=== PATIENT | male | born 1980 | race Caucasian/White ===

== ENCOUNTER 2017-08-28 17:38 | Emergency (ER) | payer OTHER ==
[~2017-08-28] VITALS: Ht 180.3 cm; Wt 122.5 kg
[~2017-08-28 17:38] MED LIST: BUSPIRONE HCL10 MG; KEFLEX500 MG PO; NORCO 5-325 TA1 EACH PO
[2017-08-28] MEDS ORDERED: CYCLOBENZAPRINE10 MG PO (18:02)
[2017-08-28] MEDS ORDERED: IBUPROFEN800 MG PO (18:03)
[2017-08-28] MEDS ORDERED: PERCOCET 5-3251 EACH PO (18:03)
[2017-08-28] MEDS ORDERED: OMEPRAZOLE20 MG PO (18:03)
[2017-08-28] MEDS ORDERED: NORCO 5-325 TA1 EACH PO (19:27)
== END 2017-08-28 20:05 | disposition home or self-care (01) ==
LOC: ED 17:38
DX: S86.111A Strain of other muscle(s) and tendon(s) of posterior muscle group at lower leg level, right leg, initial encounter (principal); X50.9XXA Other and unspecified overexertion or strenuous movements or postures, initial encounter; Z79.899 Other long term (current) drug therapy
CPT/HCPCS: 99283

== ENCOUNTER 2019-01-08 14:13 | Emergency (ER) | payer OTHER ==
[~2019-01-08] VITALS: Ht 180.3 cm; Wt 122.5 kg
[~2019-01-08 14:13] MED LIST changes: +CYCLOBENZAPRINE10 MG PO; +IBUPROFEN800 MG PO; +OMEPRAZOLE20 MG PO; +PERCOCET 5-3251 EACH PO
--- OUTSIDE RECORDS SUMMARY | 2019-01-08 14:16 | XMS ---
PreManage Notification: TRAMAINE DAVIS Security Morale Officer Events No recent Security Events currently on file CRITERIA MET - ESMEP CARE PROVIDERS Rubio Vergara Treatment Current MD PHONE: Unknown Clemente has no Care Guidelines for this patient. EKadi VISIT COUNT (12 MO.) 1 JULIA Govea TOTAL 1 NOTE: Visits indicate total known visits. ED/UCC VISIT TRACKING (12 MO.) 01/08/2019 14:14 [facility] [place] TYPE: Emergency COMPLAINT: - BACK PAIN/INJURY INPATIENT VISIT TRACKING (12 MO.) No inpatient visits to display in this time frame [id number]
[2019-01-08] MEDS ORDERED: NIACIN500 M1 PO (15:13)
[2019-01-08] MEDS ORDERED: PREDNISONE20 MG PO (17:23)
== END 2019-01-08 17:31 | disposition home or self-care (01) ==
LOC: ED 14:13
DX: M54.5 Low back pain (principal); G89.29 Other chronic pain; Z87.891 Personal history of nicotine dependence; Z79.899 Other long term (current) drug therapy; Z79.891 Long term (current) use of opiate analgesic
CPT/HCPCS: 72100; 99283-25; J7512

== ENCOUNTER 2019-03-08 18:42 | Emergency (ER) | payer OTHER ==
[~2019-03-08] VITALS: Ht 180.3 cm; Wt 124.5 kg
--- OUTSIDE RECORDS SUMMARY | ~2019-03-08 | XMS | Clinical Summary ---
Demographics + + + | Address | [address] | | | [place] [address] | + + + | Home Phone | | + + + | Preferred Language | Unknown | + + + | Marital Status | | + + + | Worship Affiliation | Unknown | + + + | Race | White | + + + | Ethnic Group | Not or | + + + Author + + + | Author | [facility] | + + + | Organization | [facility] | + + + | Address | Unknown | + + + | Phone | Unavailable | + + + Support + + + + + | Name | Relationship | Address | Phone | + + + + + | Daphnie Maciel | ECON | [address] | | | | | #[place] | | | | | [address] | | + + + + + Care Team Providers + +------+ + | Care Marketing Regional Consultant Name | Role | Phone | + +------+ + | Michael Hu MD | PP | | + +------+ + Source Comments ALY is fully live on both [facility] Ambulatory and [facility] InPatient.[facility] Allergies No Known Allergies Current Medications + + +-------+---------+------+------+-------+ | Prescription | Sig. | Disp. | Refills | Star | End | Statu | | | | | | t | Date | s | | | | | | Date | | | + + +-------+---------+------+------+-------+ | ACETAMINOPHEN | Take 500 mg by mouth | | | | | Activ | | (TYLENOL ORAL) | once daily. | | | | | e | + + +-------+---------+------+------+-------+ Active Problems + + + | Problem | Noted Date | + + + | Neck pain | 05/30/2012 | + + + Family History + + +------+ + | Medical History | Relation | Name | Comments | + + +------+ + | Arthritis | Mother | | | + + +------+ + + +------+--------+ + | Relation | Name | Status | Comments | + +------+--------+ + | Brother | | Alive | | + +------+--------+ + | Daughter | | Alive | | + +------+--------+ + | Daughter | | Alive | | + +------+--------+ + | Father | | Alive | | + +------+--------+ + | Mother | | Alive | | + +------+--------+ + | Son | | Alive | | + +------+--------+ + | Son | | Alive | | + +------+--------+ + Social History + + + +--------+ + | Tobacco Use | Types | Packs/Day | Years | Date | | | | | Used | | + + + +--------+ + | Former Smoker | Cigarettes | 1.5 | 22 | Quit: 01/11/2012 | + + + +--------+ + + + +---------+ + | Alcohol Use | Drinks/We | oz/Week | Comments | | | ek | | | + + +---------+ + | No | | | | + + +---------+ + + + + | Sex Assigned at | Date Recorded | | | | + + + | Not on file | | + + + Last Filed Vital Signs + + + + | Vital Sign | Reading | Time Taken | + + + + | Blood Pressure | 127/77 | 05/30/2012 11:31 AM PDT | + + + + | Pulse | 50 | 05/30/2012 11:31 AM PDT | + + + + | Temperature | 36.6 C (97.9 F) | 05/30/2012 11:31 AM PDT | + + + + | Respiratory Rate | - | - | + + + + | Oxygen Saturation | - | - | + + + + | Inhaled Oxygen | - | - | | Concentration | | | + + + + | Weight | 110.6 kg (243 lb | 05/30/2012 11:31 AM PDT | | | 12.8 oz) | | + + + + | Height | - | - | + + + + | Body Mass Index | - | - | + + + + Plan of Treatment + + + + + | Health Maintenance | Due Date | Last Done | Comments | + + + + + | Influenza (Flu) | | | | | vaccination (#1) | 8 | | | + + + + + Results Not on filefrom Last 3 Months Insurance + +--------+ +------+ + + | Payer | Benefi | Subscriber | Type | Phone | Address | | | t Plan | ID | | | | | | / | | | | | | | Group | | | | | + +--------+ +------+ + + | BLUE CROSS BLUE | BCBS | xxxxxxxxxxx | PPO | [phone] | [address] [address] [place] | | SHIELD | OUT OF | [phone] | | [phone] | [place], [place] | | | [place] | | | | [address] | + +--------+ +------+ + + + +--------+ +--------+ + + | Guarantor Name | Accoun | Relation to | Date | Phone | Billing Address | | | t Type | Patient | of | | | | | | | | | | + +--------+ +--------+ + + | TRAMAINE MACIEL | Person | Self [birth year] | Home: | [address] | | | al/Angel | | 1980 | [phone] | [id number] [place] | | | [place] | | | [phone] | [phone] | + +--------+ +--------+ + +"
--- OUTSIDE RECORDS SUMMARY | ~2019-03-08 | XMS | Clinical Summary ---
Demographics + + + | Address | [address] | | | [place] [address] | + + + | Home Phone | | + + + | Preferred Language | Unknown | + + + | Marital Status | | + + + | Hinduism Affiliation | Unknown | + + + [...] #[place] | | | | | [address] | | + + + + + Care Team Providers + +------+ + | Care Grocery Clerk Marking Name | Role | Phone | + +------+ + | Michael Hu MD | PP | | + +------+ + Source Comments ALY is fully live on both [facility] Ambulatory and [facility] InPatient.[facility] Allergies No Known Allergies Current Medications + [...] | PPO | [phone] | [address] [address] [place] | | SHIELD | OUT OF | x | | [phone] | [place], [place] | | | [place] | | | | [address] | + +--------+ +------+ + + + [...] | | al/Angel | | 1980 | [phone] | [address] [place] | | | [place] | | | [phone] | [phone] | + +--------+ +--------+ + +"
--- OUTSIDE RECORDS SUMMARY | ~2019-03-08 | XMS | Clinical Summary ---
Demographics + + + | Address | [address] | | | [place] [address] | + + + | Home Phone | | + + + | Preferred Language | Unknown | + + + | Marital Status | | + + + | Rastafari Affiliation | 1013 | + + + | Race | Unknown | + + + | Ethnic Group | Unknown | + + + Author + + + | Author | [facility] | | | and [place] | + + + | Organization | [facility] | | | [...] Team Providers + +------+ + | Care Clay Products Glazer Name | Role | Phone | + +------+ + | Katiana Hermosillo NP | PP | Unavailable | + +------+ + Allergies + + + + + + | Active Allergy | Reactions | Severity | Noted | Comments | | | | | Date | | + + + + + + | Citalopram | Nausea And Vomiting | | 12/21/19 | "Celexa" Light | | | | | 15 | headedness, sweats | + + + + + + Medications + + + +---------+------+------+-------+ | Medication | Sig | Dispensed | Refills | Star | End | Statu | | | | | | t | Date | s | | | | | | Date | | | + + + +---------+------+------+-------+ | NIACIN PO | Take 500 mg by mouth | | 0 | | | Activ | | | 2 times daily. | | | | | e | + + + +---------+------+------+-------+ | | Take 1 tablet by | | 0 | | | Activ | | HYDROcodone-acetamin | mouth every 8 hours | | | | | e | | ophen (NORCO) 10-325 | as needed for Pain. | | | | | | | mg per tablet | | | | | | | + + + +---------+------+------+-------+ | cyclobenzaprine | Take 10 mg by mouth | | 0 | | | Activ | | (FLEXERIL) 10 mg | 3 times daily as | | | | | e | | tablet | needed for Muscle | | | | | | | | spasms. | | | | | | + + + +---------+------+------+-------+ | ranitidine | Take 300 mg by mouth | | 0 | | | Activ | | (ZANTAC) 300 MG | nightly. | | | | | e | | tablet | | | | | | | + + + +---------+------+------+-------+ | Misc. Devices | 1 Units by Does not | 1 each | 0 | 02/1 | | Activ | | (CERVICAL TRACTION) | apply route Daily as | | | 0/20 | | e | | KIT | needed (Neck apin). 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 | + + + | Facet arthropathy, cervical | 12/22/2014 | + + + | Cervical scoliosis | 12/22/2014 | + + + | Neck pain on left side | 12/22/2014 | + + + Family History + + +------+ + | Medical History | Relation | Name | Comments | + + +------+ + | Alcohol abuse | Father | | | + + +------+ + | Arthritis | Father | | | + + +------+ + | Arthritis | Mother | | | + + +------+ + | Heart failure | Mother | | | + + +------+ + + +------+--------+ + | Relation | Name | Status | Comments | + +------+--------+ + | Father | | | | + +------+--------+ + | Mother | | | | + +------+--------+ + Social History + +-------+ +--------+ + [...] + + + | Blood Pressure | 112/78 | 12/22/2014 0844 PST | + + + + | Pulse | 70 | 12/22/2014843 PST | + + + + | Temperature | - | - | + + + + | Respiratory Rate | 18 | 12/22/2014843 PST | + + + + | Oxygen Saturation | - | - | + + + + | Inhaled Oxygen | - | - | | Concentration | | | + + + + | Weight | 125.6 kg (277 lb) | 12/22/2014843 PST | + + + + | Height | 180.3 cm (5' 11") | 12/22/2014843 PST | + + + + | Body Mass Index | 38.63 | 12/22/2014843 PST | + + + + Plan of Treatment + + + + + | Health Maintenance | Due Date | Last Done | Comments | + + + + + | Vaccine: | | | | | Dtap/Tdap/Td (1 - | 8 | | | | Tdap) | | | | + + + + + | Vaccine: Influenza | | | | | (Season Ended) | 9 | | | + + + + + Results Not on filefrom Last 3 Months Insurance + +--------+ +--------+ +---------+--------+ | Payer | Benefi | Subscriber | Effect | Phone | Address | Type | | | t Plan | ID | kiesha | | | | | | / | | Dates | | | | | | Group | | | | | | + +--------+ +--------+ +---------+--------+ | [employer] | MODA | [id number] | | [phone] | | Medica | | MEDICAID HMO | HEALTH | | [phone]-Pr | 1 | | id | | | MDCD | | esent | | | | | | [place] | | | | | | + +--------+ +--------+ +---------+--------+ + +--------+ +--------+ + + | Guarantor Name | Accoun | Relation to | Date | Phone | Billing Address | | | t Type | Patient | of | | | | | | | | | | + +--------+ +--------+ + + | Candelario Maciel | Person | Self [birth year] | [address] | | [place] | al/Fam | | 1980 | [phone] | [address] [place], | | | [place] | | | [address] (Home) | [place] [address] | + +--------+ +--------+ + + Advance Directives Patient has advance care planning documents on file. For more information, please contact:[facility] [place] [address]
--- OUTSIDE RECORDS SUMMARY | ~2019-03-08 | XMS | Clinical Summary ---
Demographics + + + | Address | [address] | | | [place] [address] | + + + | Home Phone | | + + + | Preferred Language | Unknown | + + + | Marital Status | Single | + + + | Restoration Affiliation | Unknown | + + + | Race | Unknown | + + + | Ethnic Group | Unknown | + + + Author + + + | Author | [facility] | + + + | Organization | [facility] | + + + | Address | Unknown | + + + | Phone | Unavailable | + + + Care Team Providers + +------+ + | Care Regional Operations Manager Name | Role | Phone | + +------+ + | Katiana Hermosillo | PP | Unavailable | + +------+ [...] +------+-------+ + | MEDICAID | [place] | [id number] | | | [address] | | | [place] | | | | [place] | | | [place] | | | | [phone] | | | [place] | | | | | + +--------+ +------+-------+ + + +--------+ +--------+ + + | Guarantor Name | Accoun | Relation to | Date | Phone | Billing Address | | | t Type | Patient | of | | | | | | | | | | + +--------+ +--------+ + + | TRAMAINE DAVIS | Person | Self | [birth year] | Home: | [address] | | | al/Fam | | 1979 | [phone] | [address] | | | [place] | | | [phone] | [place] [address] | + +--------+ +--------+ + +"
--- OUTSIDE RECORDS SUMMARY | ~2019-03-08 | XMS | Clinical Summary ---
Demographics + + + | Address | [address] | | | [place] [address] | + + + | Home Phone | | + + + | Preferred Language | Unknown | + + + | Marital Status | | + + + | Jehovah'S Witness Affiliation | 1013 | + + + | Race | Unknown | + + + | Ethnic Group | Unknown | + + + Author + + + | Author | [facility] | | | and [place] | + + + | Organization | [facility] | | | [...] Team Providers + +------+ + | Care Muck Farmer Name | Role | Phone | + [...] | [employer] | MODA | [id number] | | [phone] | | Medica | | MEDICAID HMO [...] [place] | al/Fam | | 1980 | [phone] | [address] [place], | | | [place] | | | [address] (Home) | [place] [address] | + +--------+ +--------+ + + Advance Directives Patient has advance care planning documents on file. For more information, please contact:[facility] [place] [address]
--- OUTSIDE RECORDS SUMMARY | ~2019-03-08 | XMS | Clinical Summary ---
Demographics + + + | Address | [address] | | | [place] [address] | + + + | Home Phone | | + + + | Preferred Language | Unknown | + + + | Marital Status | Single | + + + | Sikh Affiliation | Unknown | + + + | Race | Unknown | + + + | Ethnic Group | Unknown | + + + Author + + + | Author | [facility] | + + + | Organization | [facility] | + + + | Address | Unknown | + + + | Phone | Unavailable | + + + Care Team Providers + +------+ + | Care Lot Technician Name | Role | Phone | + [...] +------+-------+ + | MEDICAID | [place] | [id number] | | | [address] | | | [place] | | | | [place] | | | [place] | | | | [address] | | | FORESTRY FOREMAN | | | | | + +--------+ [...] | | | [phone] | [place] [address] | + +--------+ +--------+ + +"
[~2019-03-08 18:42] MED LIST changes: +NIACIN500 M1 PO; +PREDNISONE20 MG PO
--- OUTSIDE RECORDS SUMMARY | 2019-03-08 18:44 | XMS ---
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 Tanesha VISIT COUNT (12 MO.) Stone Govea TOTAL 2 NOTE: Visits indicate total known visits. ED/UCC VISIT TRACKING (12 MO.) 03/08/2019 18:42 [facility] [place] TYPE: Emergency COMPLAINT: - R HAND SWELLING 01/08/2019 14:14 [facility] [place] TYPE: Emergency COMPLAINT: - BACK PAIN/INJURY DIAGNOSES: - Other snf (current) drug therapy - Low back pain - penitentiary (current) use of opiate analgesic - Other chronic pain - Personal history of nicotine dependence INPATIENT VISIT TRACKING (12 MO.) No inpatient visits to display in this time frame [id number]
== END 2019-03-08 19:48 | disposition home or self-care (01) ==
LOC: ED 18:42
PROC: 2W3CX1Z Immobilization of Right Lower Arm using Splint (ICD-10-PCS; principal; 2019-03-08)
DX: S66.911A Strain of unspecified muscle, fascia and tendon at wrist and hand level, right hand, initial encounter (principal); Z87.891 Personal history of nicotine dependence; Z88.8 Allergy status to other drugs, medicaments and biological substances; Z79.899 Other long term (current) drug therapy; X58.XXXA Exposure to other specified factors, initial encounter
CPT/HCPCS: 29125; 99283-25

== ENCOUNTER 2019-09-29 16:18 | Emergency (ER) | payer OTHER ==
[~2019-09-29] VITALS: Ht 180.3 cm; Wt 115.7 kg
--- OUTSIDE RECORDS SUMMARY | ~2019-09-29 | XMS | Encounter Summary ---
Demographics + + + | Address | [address] | | | [place] [address] | + + + | Home Phone | | + + + | Preferred Language | Unknown | + + + | Marital Status | | + + + | Restorationist Affiliation | 1013 | + + + | Race | Unknown | + + + | Ethnic Group | Unknown | + + + Author + + + | Author | [facility] | | | and [place] | + + + | Organization | [facility] | | | and [place] | + + + | Address | Unknown | + + + | Phone | Unavailable | + + + Support + + +---------+ + | Name | Relationship | Address | Phone | + + +---------+ + | Elisabeth Janell | ECON | Unknown | | + + +---------+ + Care Team Providers + +------+ + | Care Rubber Printing Machine Operator Name | Role | Phone | + +------+ + | Katiana Hermosillo NP | PCP | | + +------+ + Encounter Details +--------+ + + + + | Date | Type | Department | Care Team | Description | +--------+ + + + + | 12/02/ | Orders Only | [facility] | Chase Melvin MD | Cervicalgia (Primary | | 2015 | | NEUROSURGERY [address] | [address] | Dx) | | | | [address] | [place] [address] | | | | | [place] | [phone] | | | | | [address] | | | | | | [phone] | | | +--------+ + + + + Social History + +-------+ +--------+------+ | Tobacco Use | Types | Packs/Day | Years | Date | | | | | Used | | + +-------+ +--------+------+ | Never Assessed | | | | | + +-------+ +--------+------+ + + + | Sex Assigned at | Date Recorded | | | | + + + | Not on file | | + + + + + + + | Job Start Date | Occupation | Industry | + + + + | Not on file | Not on file | Not on file | + + + + + + + + | Travel History | Travel Start | Travel End | + + + + + + | No recent travel history available. | + + documented as of this encounter Plan of Treatment Not on filedocumented as of this encounter Results XR Cervical Spine 4 or 5 Vws (12/22/2014 7:57 AM PST) + + | Specimen | + + | | + + + + + | Narrative | Performed At | + + + | XR CERVICAL SPINE 4 OR 5 VWS 12/22/2014 7:57 AM HISTORY: CERVICAL | [facility] | | [facility]. COMPARISON: None. FINDINGS: Visualized skull base | [facility] | | and facial structures demonstrate no acute findings. Prevertebral | [facility] | | soft tissues are normal. Mild anterolisthesis is visualized of C6 | - IMAGING | | over C7 that decreases during extension, consistent with mild | | | instability. Additional mild anterolisthesis is visualized of C5 over | | | C6 with no evidence for instability. Minimal anterolisthesis are | | | present of C2 over C3 and of C3 over C4 with no instability. There is | | | mild spondylosis of the cervical spine. Mild degenerative changes are | | | present of the anterior atlantoaxial joint. Bone mineralization is | | | normal. The dens is intact. Vertebral body heights are preserved with | | | no evidence for compression fractures. There is mild disc narrowing | | | at C4-5. Facet joints are intact. Visualized upper chest is | | | unremarkable. IMPRESSION - Multilevel degenerative changes | | | including some mild instability of C6 over C7. Dictated and Signed | | | by: Enio Love MD Electronically signed: 12/22/2014 8:59 AM | | + + + + + | Procedure Note | + + | Ephraim, Rad Results In - 12/22/2014 9:02 AM PST XR CERVICAL SPINE 4 OR 5 VWS 12/22/2014 | | 7:57 AMHISTORY: CERVICAL SPRAIN.COMPARISON: None.FINDINGS:Visualized skull base and | | facial structures demonstrate no acute findings.Prevertebral soft tissues are | | normal.Mild anterolisthesis is visualized of C6 over C7 that decreases duringextension, | | consistent with mild instability. Additional mild anterolisthesis isvisualized of C5 | | over C6 with no evidence for instability. Minimalanterolisthesis are present of C2 over | | C3 and of C3 over C4 with no instability.There is mild spondylosis of the cervical | | spine. Mild degenerative changes arepresent of the anterior atlantoaxial joint. Bone | | mineralization is normal. Thedens is intact. Vertebral body heights are preserved with | | no evidence forcompression fractures. There is mild disc narrowing at C4-5. Facet joints | | areintact. Visualized upper chest is unremarkable.IMPRESSION -Multilevel degenerative | | changes including some mild instability of C6 over C7.Dictated and Signed by: Enio | | MD Ivan Electronically signed: 12/22/2014 8:59 AM | |anterolisthesis are present of C2 over C3 and of C3 over C4 with no instability. | |There is mild spondylosis of the cervical spine. Mild degenerative changes are | |present of the anterior atlantoaxial joint. Bone mineralization is normal. The | |dens is intact. Vertebral body heights are preserved with no evidence for | |compression fractures. There is mild disc narrowing at C4-5. Facet joints are | |intact. Visualized upper chest is unremarkable. | | | |IMPRESSION - | |Multilevel degenerative changes including some mild instability of C6 over C7. | | | |Dictated and Signed by: Enio Love MD | | Electronically signed: 12/22/2014 8:59 AM | + + + + + + + | Performing | Address | City/State/Zipcode | Phone Number | | Organization | | | | + + + + + | [facility] | [address] | [place] | [phone] | | [facility] | | [address] | | | - IMAGING | | | | + + + + + documented in this encounter Visit Diagnoses + + | Diagnosis | + + | Cervicalgia - Primary | + + documented in this encounter"
--- OUTSIDE RECORDS SUMMARY | ~2019-09-29 | XMS | Encounter Summary ---
Demographics + + + | Address | [address] | | | [place] [address] | + + + | Home Phone | | + + + | Preferred Language | Unknown | + + + | Marital Status | | + + + | Catholic Affiliation | 1013 | + + + | Race | Unknown | + + + | Ethnic Group | Unknown | + + + Author + + + | Author | [facility] | | | and [place] | + + + | Organization | [facility] | | | and [place] | + + + | Address | Unknown | + + + | Phone | Unavailable | + + + Support + + +---------+ + | Name | Relationship | Address | Phone | + + +---------+ + | Elisabeth Maciel | ECON | Unknown | | + + +---------+ + Care Team Providers + +------+ + | Care Plate Printer Name | Role | Phone | + +------+ + | Katiana Hermosillo NP | PCP | | + +------+ + Reason for Visit + + + | Reason | Comments | + + + | Referral Consult | | + + + Encounter Details +--------+ + + + + | Date | Type | Department | Care Team | Description | +--------+ + + + + | 01/14/ | Telephone | [facility] | Chase Melvin MD | Referral Consult | | 2015 | | NEUROSURGERY [address] | | | | | [address] | [place] [address] | | | | | [place] | [phone] | | | | | [address] | | | | | | [phone] | | | +--------+ + + + + Social History + +-------+ +--------+ + | Tobacco Use | Types | Packs/Day | Years | Date | | | | | Used | | + +-------+ +--------+ + | Former Smoker | | 1.5 | 20 | Quit: 11/12/2011 | + +-------+ +--------+ + + +---+---+---+ | Smokeless Tobacco: | | | | | Never Used | | | | + +---+---+---+ + + +---------+ + | Alcohol Use | Drinks/Week | oz/Week | Comments | + + +---------+ + | No | | | Recovering alcoholic | + + +---------+ + + + [...] Not on filedocumented as of this encounter Visit Diagnoses Not on filedocumented in this encounter"
--- OUTSIDE RECORDS SUMMARY | ~2019-09-29 | XMS | Encounter Summary ---
Demographics + + + | Address | [address] | | | [place] [address] | + + + | Home Phone | | + + + | Preferred Language | Unknown | + + + | Marital Status | | + + + | Confucianist Affiliation | 1013 | + + + | Race | Unknown | + + + | Ethnic Group | Unknown | + + + Author + + + | Author | [facility] | | | and [place] | + + + | Organization | [facility] | | | [...] Team Providers + +------+ + | Care Almond Blancher Operator Name | Role | Phone | + +------+ + | Katiana Hermosillo NP | PCP | | + +------+ + Encounter Details +--------+ + + + + | Date | Type | Department | Care Team | Description | +--------+ + + + + | 12/21/ | Abstract | [facility] | Chase Melvin MD | | | 2015 | | NEUROSURGERY [address] | [address] | | | | | [address] | [place] [address] | | | | | DEE[place] Krueger | [phone] | | | | | [address] | | | | | | [phone] | | | +--------+ + + + + Social History + +-------+ +--------+ + | Tobacco Use | Types | Packs/Day | Years | Date | | | | | Used | | + +-------+ +--------+ + | Former Smoker | | 1.5 | 20 | Quit: 11/12/2011 | + +-------+ +--------+ + + + +---------+ + | [...]
--- OUTSIDE RECORDS SUMMARY | ~2019-09-29 | XMS | Clinical Summary ---
Demographics + + + | Address | [address] | | | [place] [address] | + + + | Home Phone | | + + + | Preferred Language | Unknown | + + + | Marital Status | | + + + | Mormon Affiliation | Unknown | + + + [...] [address] | | | | | [id number] | | | | | [address] | | + + + + + Care Team Providers + +------+ + | Care Dairy Processing Equipment Operator Name | Role | Phone | + +------+ + | Michael Hu MD | PCP | | + +------+ + Source Comments ALY is fully live on both [facility] Ambulatory and [facility] InPatient.[facility] Allergies No Known Allergies Medications + + + +---------+------+------+-------+ | Medication | Sig | Dispensed | Refills | Star | End | Statu | | | | | | t | Date | s | | | | | | Date | | | + + + +---------+------+------+-------+ | ACETAMINOPHEN | Take 500 mg by mouth | | 0 | | | Activ | | (TYLENOL ORAL) | once daily. | | | | | e | + + + +---------+------+------+-------+ Active Problems + + + | Problem [...] recent travel history available. | + + Last Filed Vital Signs + + + + + | Vital Sign | Reading | Time Taken | Comments | + + + + + | Blood Pressure | 127/77 | 05/30/2012 11:31 AM | | | | | PDT | | + + + + + | Pulse | 50 | 05/30/2012 11:31 AM | | | | | PDT | | + + + + + | Temperature | 36.6 C (97.9 F) | 05/30/2012 11:31 AM | | | | | PDT | | + + + + + | Respiratory Rate | - | - | | + + + + + | Oxygen Saturation | - | - | | + + + + + | Inhaled Oxygen | - | - | | | Concentration | | | | + + + + + | Weight | 110.6 kg (243 lb | 05/30/2012 11:31 AM | | | | 12.8 oz) | PDT | | + + + + + | Height | - | - | | + + + + + | Body Mass Index | - | - | | + + + + + Plan of Treatment + + + + + | Health Maintenance | Due Date | Last Done | Comments | + + + + + | Influenza (Flu) | | | | | vaccination (#1) | 9 | | | + + + + + | Pneumococcal | Aged Out | | No longer eligible | | vaccination | | | based on patient's | | | | | age to complete this | | | | | topic | + + + + + Results Not on filefrom Last 3 Months Insurance + +--------+ +--------+ + +------+ | Payer | Benefi | Subscriber | Effect | Phone | Address | Type | | | t Plan | ID | kiesha | | | | | | / | | Dates | | | | | | Group | | | | | | + +--------+ +--------+ + +------+ | BLUE CROSS BLUE | BCBS | [phone] | 11/12/19 | [phone] | [address] | PPO | | SHIELD | OUT OF | x | 11-Pre | 8 | [address] | | | | STATE | | sent | | [place], | | | | | | | | [place] | | | | | | | | [address] | | + +--------+ +--------+ + +------+ + +--------+ +--------+ + + | Guarantor Name | Accoun | Relation to | Date | Phone | Billing Address | | | t Type | Patient | of | | | | | | | | | | + +--------+ +--------+ + + | Candelario Maciel | Person | Self | [birth year] | [address] | | | al/Fam | | 1980 | [phone] | [address] [place] | | | [place] | | | 0 (Home) | [address] | + +--------+ +--------+ + +"
--- OUTSIDE RECORDS SUMMARY | ~2019-09-29 | XMS | Clinical Summary ---
Demographics + + + | Address | [address] | | | [place] [address] | + + + | Home Phone | | + + + | Preferred Language | Unknown | + + + | Marital Status | Single | + + + | Anabaptist Affiliation | Unknown | + + + | Race | Unknown | + + + | Ethnic Group | Unknown | + + + Author + + + | Author | [facility] (Historical as of | | | 06-28-19) | + + + | Organization | [facility] (Historical as of | | | 06-28-19) | + + + | Address | Unknown | + + + | Phone | Unavailable | + + + Care Team Providers + +------+ + | Care Information Consultant Name | Role | Phone | + +------+ + | Pia Hermosillos Ananthmerari COMMERCIAL PAINTER | PP | Unavailable | + +------+ + Allergies Not on File Current Medications Not on file Active Problems Not on file Social History + +-------+ +--------+------+ | Tobacco [...] on file | | + + + Plan of Treatment Not on file Results Not on filefrom Last 3 Months Insurance + +--------+ +------+-------+ + | Payer | Benefi | Subscriber | Type | Phone | Address | | | t Plan | ID | | | | | | / | | | | | | | Group | | | | | + +--------+ +------+-------+ + | MEDICAID | [place] | [id number] | | | [address] | | | N | | | | [place] | | | [place] | | | | [address] | | | DIRECTOR OF INTELLIGENCE | | | | | + +--------+ +------+-------+ + + +--------+ +--------+ + + | Guarantor Name | Accoun | Relation to | Date | Phone | Billing Address | | | t Type | Patient | of | | | | | | | | | | + +--------+ +--------+ + + | CANDELARIO DAVIS | Person | Self [birth year] | Home: | [address] | | | al/Fam | | 1980 | [phone] | [address] | | | jer[place] | | | [phone] | [place] [address] | + +--------+ +--------+ + +"
--- OUTSIDE RECORDS SUMMARY | ~2019-09-29 | XMS | Encounter Summary ---
Demographics + + + | Address | [address] | | | [place] [address] | + + + | Home Phone | | + + + | Preferred Language | Unknown | + + + | Marital Status | | + + + | Confucianism Affiliation | Unknown | + + + | Race | White | + + + | Ethnic Group | Not or | + + + Author + + + | Author | [facility] | + + + | Organization | [facility] | + + + | Address | Unknown | + + + | Phone | Unavailable | + + + Support + + + + + | Name | Relationship | Address | Phone | + + + + + | Daphnie Maciel | ECON | [address] | | | | | #[id number] | | | | | [address] | | + + + + + Care Team Providers + +------+ + | Care Cardiac Surgeon Name | Role | Phone | + +------+ + | Michael Sykes MD | PCP | | + +------+ + Reason for Visit + + + | Reason | Comments | + + + | Consultation | | + + + Consultation (Routine) +--------+ + + + + + | Status | Reason | Specialty | Diagnoses / | Referred By | Referred To | | | | | Procedures | Contact | Contact | +--------+ + + + + + | Closed | Specialty | Neurological | Diagnoses | Fritz, | Keri, | | | Services | Surgery | Cervical | Michael Valentin, | MD [address] | | | Required | | radiculopath | MD SYKES | [address] | | | | | y at [address] | FAMILY | [place], [place] | | | | | INS: BCBS | MEDICINE | [address] | | | | | | [address] | Phone: | | | | | | [address] | [phone] | | | | | | [place], | Fax: | | | | | | [place] [address] | [phone] | | | | | | Phone: | | | | | | | [phone] | | | | | | | Fax: | | | | | | | [phone] | | +--------+ + + + + + Encounter Details +--------+---------+ + + + | Date | Type | Department | Care Team | Description | +--------+---------+ + + + | 07/19/ | Office | Neurosurgery at | Arabella Saavedra MD | Neck pain (Primary | | 2011 | Visit | [facility] [address] | [address] | Dx) | | | | Ave Mailcode: CH8N | [place], [place] | | | | | [facility] | [address] | | | | | and Healing, | [phone] | | | | | [facility] | | | | | | Floor [place], [place] | | | | | | [address] | | | | | | [phone] | | | +--------+---------+ + + + Social History + + + +--------+ [...] + + documented as of this encounter Last Filed Vital Signs + + + [...] + + + documented in this encounter Progress Notes Arabella Saavedra MD - 05/30/2012 1:54 PM PDT History: Candelario Maciel is a 31 year old man presenting in clinic with a complaint of neck pain. Patient reports an injury due to hyperflexion of his neck in a trampoline accident 15-16 yea rs ago, but only started feeling pain in the last year, starting in September 2011. Patient also has a new daughter, born in November 2011, and he reports carrying her will also cause n kevin pain. There is a constant background pain which the patient rates at a 2, with breakthro ugh pain rated at an 8-9. The pain starts on the left side of his neck and radiates down to his trapezius muscle. Patient also reports a feeling of cold and numbness in the anterior almonte rface of his left arm and palmar surface of his left hand during these episodes. Patient rep orts episodes can be triggered by turning his head too far to the left, but that episodes al so occur sporadically without noticeable trigger. He has tried managing the pain with NSAIDs and Tylenol with codeine. Patient has been referred to physical therapy but states he is to o busy to go, and is here for a second opinion on cortisone injections as he is concerned ab out the cost. No past medical history on file. Current outpatient prescriptions:ACETAMINOPHEN (TYLENOL ORAL), Take 500 mg by mouth once nam jean-baptiste. , Disp: , Rfl: No Known Allergies No past surgical history on file. History Social History Marital Status: Spouse Name: N/A Number of Children: N/A Years of Education: N/A Occupational History Not on file. Social History Main Topics Smoking status: Former Smoker -- 1.5 packs/day for 20 years Types: Cigarettes Quit date: 01/11/2012 Smokeless tobacco: Not on file Alcohol Use: No Drug Use: 5 per week Special: Smoke Sexually Active: Not on file Other Topics Concern Not on file Social History Narrative No narrative on file Exam: Neurological Examination: Mental status: Normal consciousness, orientation, affect and fluency, Cranial nerves: II-XII intact on detailed examination. Motor: Normal strength, muscle bulk, and tone. Sensory: No loss of sensation to pinprick and light touch. Cerebellar: Normal Ramona and fine coordinated movements. Gait: Normal gait and stride length. Romberg negative. Deep tendon reflexes: Present and normoactive. Pathologic reflexes: Absent. Imaging: Probable C3 > C4 compression fractures from old trauma. Otherwise no instability or deform ity. Assessment: At this point there is no clear indication for surgery. I suspect his problems with neck p ain do stem from his hyperflexion injury years ago. I have recommended that he continue PT, and consider other treatments, such as cervical halter traction. Plan: 1. Continue conservative treatment. 2. Consider cervical halter traction. documented in this enco unter Plan of Treatment Not on filedocumented as of this encounter Procedures + +--------+ + + + | Procedure Name | Priori | Date/Time | Associated Diagnosis | Comments | | | ty | | | | + +--------+ + + + | RADIOLOGY | | 05/30/2012 | | Results for this | | | | 12:00 AM | | procedure are in the | | | | PDT | | results section. | + +--------+ + + + documented in this encounter Results RADIOLOGY (05/30/2012 12:00 AM PDT) + + + | Narrative | Performed At | + + + | | | + + + + + | Transcriptions | + + | Joesph Lucas - 05/30/2012 5:25 PM PDT | + + documented in this encounter Visit Diagnoses + + | Diagnosis | + + | Neck pain - Primary Cervicalgia | + + documented in this encounter"
--- OUTSIDE RECORDS SUMMARY | ~2019-09-29 | XMS | Encounter Summary ---
Demographics + + + | Address | [address] | | | [place] [address] | + + + | Home Phone | | + + + | Preferred Language | Unknown | + + + | Marital Status | | + + + | Christianity Affiliation | 1013 | + + + | Race | Unknown | + + + | Ethnic Group | Unknown | + + + Author + + + | Author | [facility] | | | and [place] | + + + | Organization | [facility] | | | and [...] Team Providers + +------+ + | Care Community Case Manager Name | Role | Phone | + +------+ + | Katiana Hermosillo NP | PCP | | + +------+ + Encounter Details +--------+ + + + + | Date | Type | Department | Care Team | Description | +--------+ + + + + | 12/22/ | Hospital | [facility] | Chase Melvin MD | Cervicalgia | | 2015 | Encounter | MED CTR XRAY [address] | [address] | | | | | [address] | [place] [address] | | | | | [place] [address] | [phone] | | | | | [phone] | | | +--------+ + + + [...] + + documented as of this encounter Medications at Time of Discharge + + + +---------+ + + | Medication | Sig | Dispensed | Refills | Start | End Date | | | | | | Date | | + + + +---------+ + + | cyclobenzaprine | Take 10 mg by mouth | | 0 | | | | (FLEXERIL) 10 mg | 3 times daily as | | | | | | tablet | needed for Muscle | | | | | | | spasms. | | | | | + + + +---------+ + + | | Take 1 tablet by | | 0 | | | | HYDROcodone-acetamin | mouth every 8 hours | | | | | | ophen (NORCO) 10-325 | as needed for Pain. | | | | | | mg per tablet | | | | | | + + + +---------+ + + | Misc. Devices | 1 Units by Does not | 1 each | 0 | /08/31 | | | (CERVICAL TRACTION) | apply route Daily as | | | 15 | | | KIT | needed (Neck apin). | | | | | + + + +---------+ + + | NIACIN PO | Take 500 mg by mouth | | 0 | | | | | 2 times daily. | | | | | + + + +---------+ + + | ranitidine | Take 300 mg by mouth | | 0 | | | | (ZANTAC) 300 MG | nightly. | | | | | | tablet | | | | | | + + + +---------+ + + documented as of this encounter Plan of Treatment Not on filedocumented as of this encounter Procedures + +--------+ + + + | Procedure Name | Priori | Date/Time | Associated Diagnosis | Comments | | | ty | | | | + +--------+ + + + | XR CERVICAL SPINE 4 | Routin | 12/22/2014 | Cervicalgia | Results for this | | [place] 5 VWS | e | 7:57 AM | | procedure are in the | | | | PST | | results section. | + +--------+ + + + documented in this encounter Results XR Cervical Spine 4 [...] | + + + + + | [facility] | [address] | [place], [place] | [phone] | | [facility] | | [address] | | | - IMAGING | | | | + + + + + documented in this encounter Visit Diagnoses + + | Diagnosis | + + | Cervicalgia | + + documented in this encounter"
--- OUTSIDE RECORDS SUMMARY | ~2019-09-29 | XMS | Encounter Summary ---
Demographics + + + | Address | [address] | | | [place] [address] | + + + | Home Phone | | + + + | Preferred Language | Unknown | + + + | Marital Status | | + + + | Orthodoxy Affiliation | 1013 | + + + | Race | Unknown | + + + | Ethnic Group | Unknown | + + + Author + + + | Author | [facility] | | | and [place] | + + + | Organization | [facility] | | | and [...] Team Providers + +------+ + | Care Head Of Precision Targeting Name | Role | Phone | + +------+ + | Katiana Hermosillo NP | PCP | | + +------+ + Encounter Details +--------+ + + + + | Date | Type | Department | Care Team | Description | +--------+ + + + + | 12/22/ | Hospital | [facility] | Chase Melvin MD | Cervicalgia | | 2015 | Encounter | MED CTR XRAY [address] | [address] | | | | | [place] | [place] [address] | | | | | [place] [address] | [phone] | | | | | [phone] | | | +--------+ + + + [...] + | [facility] | [address] | [place], [place] | [phone] | | [facility] | | [address] | | | - IMAGING | | | | + + + + + documented in this encounter Visit Diagnoses + + | Diagnosis | + + | Cervicalgia | + + documented in this encounter"
--- OUTSIDE RECORDS SUMMARY | ~2019-09-29 | XMS | Encounter Summary ---
Demographics + + + | Address | [address] | | | [place] [address] | + + + | Home Phone | | + + + | Preferred Language | Unknown | + + + | Marital Status | | + + + | Moravian Affiliation | 1013 | + + + | Race | Unknown | + + + | Ethnic Group | Unknown | + + + Author + + + | Author | [facility] | | | and [place] | + + + | Organization | [facility] | | | [...] Team Providers + +------+ + | Care Direct Sales Representative Name | Role | Phone | + [...] | | [address] | [place] [address] | | | | | [place] | [phone] | | | | | [address] | | | | | | [phone] | | | +--------+ + + + [...] | + + + + + | [facility] | [address] | [place] | [phone] | | [facility] | | [address] | | | - IMAGING | | | | + + + + + documented in this encounter Visit Diagnoses + + | Diagnosis | + + | Cervicalgia - Primary | + + documented in this encounter"
--- OUTSIDE RECORDS SUMMARY | ~2019-09-29 | XMS | Encounter Summary ---
Demographics + + + | Address | [address] | | | [place] [address] | + + + | Home Phone | | + + + | Preferred Language | Unknown | + + + | Marital Status | | + + + | Temple Affiliation | 1013 | + + + | Race | Unknown | + + + | Ethnic Group | Unknown | + + + Author + + + | Author | [facility] | | | and [place] | + + + | Organization | [facility] | | | [...] Team Providers + +------+ + | Care Steel Layer Name | Role | Phone | + +------+ + | Katiana Hermosillo NP | PCP | | + +------+ + Encounter Details +--------+ + + + + | Date | Type | Department | Care Team | Description | +--------+ + + + + | 09/14/ | Hospital | C GENERIC IP | Conversion | Pain | | 2015 | Encounter | CONVERSION DEP [address] | Transaction, | | | | | CLAUDIA KAMARA | Provider Unknown | | | | | [place] | [phone] | | | | | [address] | | | | | | [phone] | | | +--------+ + + + [...] not | 1 each | 0 | 12/22/19 | | | (CERVICAL TRACTION) | apply [...] | + +--------+ + + + | MRI CERVICAL SPINE | Routin | 10/09/2014 | | Results for this | | WO CONTRAST | e | 10:19 PM | | procedure are in the | | | | PST | | results section. | + +--------+ + + + documented in this encounter Results MRI Cervical Spine wo Contrast (10/09/2014 10:19 PM PST) + + | Specimen | + + | | + + + + + | Narrative | Performed At | + + + | This is a non-reportable procedure without a radiologist report and | | | is used for image storage only | | + + + + + | Procedure Note | + + | Raman Ye - 06/27/2019 11:09 AM PDT This is a non-reportable procedure | | without a radiologist report and isused for image storage only | + + documented in this encounter Visit Diagnoses + + | Diagnosis | + + | Pain Generalized pain | + + documented in this encounter"
--- OUTSIDE RECORDS SUMMARY | ~2019-09-29 | XMS | Clinical Summary ---
Demographics + + + | Address | [address] | | | [place] [address] | + + + | Home Phone | | + + + | Preferred Language | Unknown | + + + | Marital Status | | + + + | Faith Affiliation | 1013 | + + + | Race | Unknown | + + + | Ethnic Group | Unknown | + + + Author + + + | Author | [facility] | | | and [place] | + + + | Organization | [facility] | | | and [...] Team Providers + +------+ + | Care Laborer Vegetable Farm Name | Role | Phone | + +------+ + | Katiana Hermosillo NP | PCP | | + +------+ + Allergies + + [...] | Blood Pressure | 112/78 | 12/22/2014 8:44 AM | | | | | PST | | + + + + + | Pulse | 70 | 12/22/2014 8:44 AM | | | | | PST | | + + + + + | Temperature | - | - | | + + + + + | Respiratory Rate | 18 | 12/22/2014 8:44 AM | | | | | PST | | + + + + + | Oxygen Saturation | - | - | | + + + + + | Inhaled Oxygen | - | - | | | Concentration | | | | + + + + + | Weight | 125.6 kg (277 lb) | 12/22/2014 8:44 AM | | | | | PST | | + + + + + | Height | 180.3 cm (5' 11") | 12/22/2014 8:44 AM | | | | | PST | | + + + + + | Body Mass Index | 38.63 | 12/22/2014 8:44 AM | | | | | PST | | + + + + + [...] Vaccine: Influenza | | | | | (#1) | 9 | | | + [...] | [employer] | [employer] | [id number] | | [phone] | | Medica | | MEDICAID HMO [...] [address] | | Davey | yunier/Angel | | 1980 | [phone] | [address] [place], | | | [place] | | | [address] (Home) | [place] [address] | + +--------+ +--------+ + + Advance Directives + + + + + | Type | Date Recorded | Patient | Explanation | | | | Log Chipper Operator | | + + + + + | Power of | | | | | Service Center Representative | | | | + + + + + | Advance | | | | | Directive | | | | + + + + +
--- OUTSIDE RECORDS SUMMARY | ~2019-09-29 | XMS | Encounter Summary ---
Demographics + + + | Address | [address] | | | [place] [address] | + + + | Home Phone | | + + + | Preferred Language | Unknown | + + + | Marital Status | | + + + | Zoroastrianism Affiliation | Unknown | + + + | Race | White | + + + | Ethnic Group | Not or | + + + Author + + + | Author | [facility] | + + + | Organization | [facility] | + + + | Address | Unknown | + + + | Phone | Unavailable | + + + Support + + + + + | Name | Relationship | Address | Phone | + + + + + | Daphnie Maciel | ECON | [address] | | | | | [id number] | | | | | [address] | | + + + + + Care Team Providers + +------+ + | Care Church Business Administrator Name | Role | Phone | + [...] Cervical | Michael Valentin, | MD [address] | | | Required | | radiculopath | MD SYKES | [address] | | | | | y at [address] | FAMILY | [place], [place] | | | | | INS: [employer]BS | MEDICINE | [address] | | | | | | [address] | Phone: | | | | | | [address] | [phone] | | | | | | [place], | Fax: | | | | | | [place] [address] | [phone] | | | | | | Phone: | | | | | | | [phone] | | | | | | | Fax: | | | | | | | [phone] | | +--------+ + + + + [...] | | | Ave Mailcode: CH8N | [place], [place] | | | | | [facility] | [address] | | | | | and Healing, | [phone] | | | | | [facility] | | | | | | Floor [place], [place] | | | | | | [address] | | | | | | [phone] | | | +--------+---------+ + + + [...]
--- OUTSIDE RECORDS SUMMARY | ~2019-09-29 | XMS | Clinical Summary ---
Demographics + + + | Address | [address] | | | [place] [address] | + + + | Home Phone | | + + + | Preferred Language | Unknown | + + + | Marital Status | | + + + | Baptist Affiliation | Unknown | + + + [...] [address] | | | | | [id number] | | | | | [address] | | + + + + + Care Team Providers + +------+ + | Care Director Of Collections And Archives Name | Role | Phone | + +------+ + | Michael Hu MD | PCP | | + +------+ + Source Comments ALY is fully live on both [facility] Ambulatory and [facility] InPatient.[facility] Allergies No Known Allergies Medications + + [...] | BCBS | xxxxxxxxxxx | 11/12/19 | [phone] | [address] | PPO | | SHIELD | OUT OF | x | 11-Pre | 8 | [address] | | | | STATE | | sent | | [place], | | | | | | | | [place] | | | | | | | | [address] | | + +--------+ +--------+ + +------+ [...] [place] | | | 0 (Home) | [address] | + +--------+ +--------+ + +"
--- OUTSIDE RECORDS SUMMARY | ~2019-09-29 | XMS | Encounter Summary ---
Demographics + + + | Address | [address] | | | [place] [address] | + + + | Home Phone | | + + + | Preferred Language | Unknown | + + + | Marital Status | | + + + | Uatsdin Affiliation | 1013 | + + + | Race | Unknown | + + + | Ethnic Group | Unknown | + + + Author + + + | Author | [facility] | | | and [place] | + + + | Organization | [facility] | | [...] Team Providers + +------+ + | Care Fire Truck Driver Name | Role | Phone | + [...] | | | | [place] | [phone] | | | | | [address] | | | | | | [phone] | | | +--------+ + + + [...]
--- OUTSIDE RECORDS SUMMARY | ~2019-09-29 | XMS | Encounter Summary ---
Demographics + + + | Address | [address] | | | [place] [address] | + + + | Home Phone | | + + + | Preferred Language | Unknown | + + + | Marital Status | | + + + | Gnosticist Affiliation | 1013 | + + + | Race | Unknown | + + + | Ethnic Group | Unknown | + + + Author + + + | Author | [facility] | | | and [place] | + + + | Organization | [facility] | | | [...] Team Providers + +------+ + | Care Sketch Artist Name | Role | Phone | + +------+ + | Katiana Hermosillo NP | PCP | | + +------+ + Reason for Visit + + + | Reason | Comments | + + + | New Patient | Neck Pain | + + + Evaluate & Treat (Routine) +--------+--------+ + + + + | Status | Reason | Specialty | Diagnoses / | Referred By | Referred To | | | | | Procedures | Contact | Contact | +--------+--------+ + + + + | Closed | | Neurosurgery | Diagnoses | [place], | Chase Melvin | | | | | Cervicalgia | Katiana Boogie, | MD [address] | | | | | Procedures | WRAPPING MACHINE HELPER [address] | | | | | [place] OFFICE | | [place], [place] | | | | | CONSULTATION | [address] | [address] | | | | | NEW/ESTAB | SLIM, | Phone: | | | | | PATIENT [address] | [place] [address] | [phone] | | | | | MIN | Phone: | Fax: | | | | | | [phone] | [phone] | | | | | | Fax: | | | | | | | [phone] | | +--------+--------+ + + + + Encounter Details +--------+---------+ + + + | Date | Type | Department | Care Team | Description | +--------+---------+ + + + | 12/22/ | Office | [facility] | Chase Melvin MD | Facet arthropathy, | | 2015 | Visit | NEUROSURGERY [address] | cervical (Primary | | | | [address] | [place] [address] | Dx); Klippel-Feil | | | | [place], [place] | [phone] | deformity; Cervical | | | | [address] | | scoliosis; Neck pain | | | | [phone] | | on left side | +--------+---------+ + + + Social History + +-------+ [...] + documented in this encounter Progress Notes Chase Melvin MD - 12/22/2014 8:35 AM PSTFormatting of this note might be different from t he original. Chase Melvin MD [address] [place] [address], [address] [place], [place] [id number] FAX: NEUROSURGERY HISTORY AND PHYSICAL EXAMINATION CHIEF COMPLAINT: Chief Complaint Patient presents with New Patient Neck Pain HISTORY OF PRESENT ILLNESS: The patient is a 34 y.o. male with the complaint of neck pain symptoms that began 15 years ago or more. The patient describes neck injury when falling of f a trampoline. He has been diagnosed in the past with cervical scoliosis. The symptoms sheth ve been gradually worsening. He rates the pain as moderate to severe up to a 7/10. The symptoms are daily. He describe s the pain as aching, numbing, sharp and tingling. He has no radiation of symptoms into the arms. His pain mostly radiates into the left neck . His symptoms improve with medication. His symptoms worsen with bending and twisting. He has tried PT, nsaids, massage. PAST MEDICAL HISTORY: Past Medical History Diagnosis Date Depression Gastric reflux Stomach ulcer PAST SURGICAL HISTORY: Past Surgical History Procedure Laterality Date No past surgeries reviewed 12/22/14 CURRENT MEDICATIONS: Current Outpatient Prescriptions Medication Sig Dispense Refill cyclobenzaprine (FLEXERIL) 10 mg tablet Take 10 mg by mouth 3 times daily as needed for Muscle spasms. HYDROcodone-acetaminophen (NORCO) 10-325 mg per tablet Take 1 tablet by mouth every 8 h ours as needed for Pain. Misc. Devices (CERVICAL TRACTION) KIT 1 Units by Does not apply route Daily as needed ( Neck apin). 1 each 0 NIACIN PO Take 500 mg by mouth 2 times daily. ranitidine (ZANTAC) 300 MG tablet Take 300 mg by mouth nightly. No current facility-administered medications for this visit. ALLERGIES: Allergies Allergen Reactions Citalopram Nausea And Vomiting "Celexa" Light headedness, sweats SOCIAL HISTORY: The patient reports that he quit smoking about 3 years ago. He has never used smokeless to bacco. He reports that he does not drink alcohol or use illicit drugs. FAMILY HISTORY: Family History Problem Relation Age of Onset Alcohol abuse Father Arthritis Mother Arthritis Father Heart failure Mother REVIEW OF SYSTEMS GENERALLY: No fever, + night sweats, no anemia, + fatigue, + recent profound weight costa es. EYES: No eye problems, no use of corrective lenses, no eye injury, no double vision, no bl indness. EARS, NOSE, AND THROAT: No changes in taste or smell, + hearing difficulty, no ringing in the ears, no ear drainage, no dizziness, no voice changes, no difficulty swallowing, + signi ficant snoring, + sleep apnea, no sinus problems, + major dental work. NEUROLOGICALLY: Please see the review of systems discussed above in the history of present illness. In addition, the patient has numbness/pain of arms, awake with numbness/pain, international coordinator rdination difficutly, neck injury, pain in neck, headaches, and migraines. PSYCHIATRIC: + depression, + sleep disorders, no anxiety, no bipolar disorder, no psychoti c episodes. CARDIOVASCULAR: No heart attacks, no heart murmur, no heart fluttering, no chest pain, + a nkle swelling. LUNG DISEASE: No shortness of breath, no cough, no tuberculosis, no bloody cough, no asth ma, no emphysema/COPD. GASTROINTESTINAL: No bowel disease, no nausea or vomiting, no rectal bleeding, no constipa tion, no stool incontinence, no liver disease, no gallbladder disease, no abdominal pain, no ulcers. KIDNEY DISEASE: No urinary frequency, no painful or difficult urination, no incontinence. ENDOCRINE: No diabetes, no thyroid disease, no osteopenia or osteoporosis, no breast drain age. SKIN: No breast lumps, no skin changes, no rashes, no itches. HEMATOLOGIC/LYMPHATIC: No enlarged lymph nodes, no easy or unusual bleeding, no personal h istory of cancer. RHEUMATOLOGIC: No joint arthritis, no rheumatoid arthritis. PHYSICAL EXAMINATION: Blood pressure 112/78, pulse 70, resp. rate 18, height 1.803 m (5' 11"), weight 125.646 kg (277 lb). Body mass index is 38.65 kg/(m^2). GENERAL: Candelario Maciel is in no acute distress with unlabored respirations. The patient does appear uncomfortable throughout the exam today. HEENT: HEAD/FACE: EYES: EARS: NASOPHARNYX: OROPHARNYX: Normocephalic and atraumatic. There are no areas of recent trauma. Normal sclerae without icterus. No drainage or tenderness. Clear without drainage. Clear without erythema. NECK (ANTERIOR): Supple and without palpable masses. CHEST: Clear to ausculation without crackles or wheeze. HEART: Regular rate and rhythm without murmurs. ABDOMEN: Soft, non-tender, non-distended, and without palpable masses. The patient is obe se. SPINE: The cervical spine exam shows there is no tenderness over the C-3, C-4, C-5, C-6 and C-7 region. No tenderness in the midline of the thoracic or lumbar spine. There is no severe palpable deformity of the spine although his neck is deviated to the right. EXTREMITIES: No cyanosis, clubbing, or edema. Distal pulses are palpable. NEUROLOGICAL EXAM: MENTAL STATUS: The patient is awake, alert, and oriented. He follows simple and complex commands. His speech is fluent, he comprehends speech well, and he repeats well. He has no apparent deficits with short or nursing home memory. CRANIAL NERVES: II: Acuity is intact. Goodman are full to confrontation. III, IV, : The pupils are reactive. Extraocular movements are intact. No ptosis is note d. V: Facial sensation is intact and symmetric. VII: Facial movements are symmetric. VIII: Hearing is intact bilaterally. IX, X: The uvula and palate move appropriately. XI: Shrug is equal bilaterally. XII: Tongue protrusion is midline. MOTOR EXAM: (5 IS NORMAL) * Indicates pain limited MUSCLE/ MOVEMENT: RIGHT LEFT Deltoids 5 5 Biceps 5 5 Triceps 5 5 Wrist Flexion 5 5 Wrist Extension 5 5 Median Intrinsics 5 5 Ulnar Intrinsics 5 5 Electrician Machine Shop Strength 5 5 Hip Flexion 5 5 Hip Extension 5 5 Knee Flexion 5 5 Knee Extension 5 5 Dorsiflexion 5 5 Extensor Hallicus Longus 5 5 Plantarflexion 5 5 SENSORY EXAM: Sensory exam shows no diminished sensation to light touch or pain throughout the upper and lower extremities. REFLEXES: (2 OR 2+ IS NORMAL) REFLEX: RIGHT LEFT BICEPS 1 1 BRACHIORADIALIS 1 1 TRICEPS 1 1 PATELLAR 1 1 ACHILLES 1 1 PLUNKETT'S ABSENT ABSENT PLANTAR DOWNGOING DOWNGOING GAIT: Gait is steady. RADIOGRAPHIC REVIEW: The patient's imaging was reviewed in detail with the patient today during the visit. The MRI and CT from 2013 and 2011 shows Klippel Feil deformity at C1 and C2. He has cervical fa cet arthropathy that is severe on the left at C2-3. He has scoliosis that begins at C6 and curves to the right above but only mildly so. ASSESSMENT: NEUROSURGICAL DIAGNOSES: Encounter Diagnoses Name Primary? Facet arthropathy, cervical Yes Klippel-Feil deformity Cervical scoliosis Neck pain on left side GENERAL DIAGNOSES: Past Medical History Diagnosis Date Depression Gastric reflux Stomach ulcer PLAN: Jamieteresita Maciel presented today, and it was a pleasure seeing this patient and asse ssing his problems. The patient has cervical pain likely from facet disease at C2-3. I had a lengthy discussion with the patient about his options for care including surgical a nd non-surgical options. While major scoliosis surgery could be done, it would likely just result in pain for him and little relief. I instead discussed options for injections, ablat ions, and if those are successful but not long in duration, I discussed the option for focus ed spinal surgery. He must exhaust his options with non-operative care before I would consider focal intervent ion. He and his spouse agreed with this. I congratulated him on quitting smoking and encou raged him to remain a non-smoker. ELECTRONICALLY SIGNED BY: Chase Melvin MD, 12/22/2014 9:49 documented in this encou nter Plan of Treatment Not on filedocumented as of this encounter Visit Diagnoses + + | Diagnosis | + + | Facet arthropathy, cervical - Primary Cervical spondylosis without myelopathy | + + | Klippel-Feil deformity Klippel-Feil syndrome | + + | Cervical scoliosis Scoliosis (and kyphoscoliosis), idiopathic | + + | Neck pain on left side Cervicalgia | + + documented in this encounter
--- OUTSIDE RECORDS SUMMARY | ~2019-09-29 | XMS | Clinical Summary ---
Demographics + + + | Address | [address] | | | [place] [address] | + + + | Home Phone | | + + + | Preferred Language | Unknown | + + + | Marital Status | | + + + | Sabianism Affiliation | 1013 | + + + | Race | Unknown | + + + | Ethnic Group | Unknown | + + + Author + + + | Author | [facility] | | | and [place] | + + + | Organization | [facility] | | | [...] Team Providers + +------+ + | Care Manager Assessment Name | Role | Phone | + [...] | [employer] | [employer] | [id number] | | [phone] | | [employer] | | MEDICAID HMO [...] | | | [address] (Home) | [place] [address] | + +--------+ +--------+ + + Advance Directives + + + + + | Type | Date Recorded | Patient | Explanation | | | | Multiple Games Dealer | | + + + + + | Power of | | | | | Color Maker | | | | + + + + + | Advance | | | | | Directive | | | | + + + + +
--- OUTSIDE RECORDS SUMMARY | ~2019-09-29 | XMS | Encounter Summary ---
Demographics + + + | Address | [address] | | | [place] [address] | + + + | Home Phone | | + + + | Preferred Language | Unknown | + + + | Marital Status | | + + + | Samaritan Affiliation | 1013 | + + + | Race | Unknown | + + + | Ethnic Group | Unknown | + + + Author + + + | Author | [facility] | | | and [place] | + + + | Organization | [facility] | | | [...] Team Providers + +------+ + | Care Metal Hanging Helper Name | Role | Phone | + +------+ + | Katiana Hermosillo NP | PCP | | + +------+ + Encounter Details +--------+ + + + + | Date | Type | Department | Care Team | Description | +--------+ + + + + | 09/09/ | Hospital | C GENERIC IP | Conversion | Pain | | 2015 | Encounter | CONVERSION DEP [address] | Transaction, | | | | | CLAUDIA KAMARA | Provider Unknown | | | | | [place] | [phone] | | | | | [address] | | | | | | [phone] | | | +--------+ + + + [...] + + + | XR CERVICAL SPINE | Routin | 04/27/2015 | | Results for this | | FLEXION AND | e | 2:13 AM | | procedure are in the | | EXTENSION ONLY | | PDT | | results section. | + +--------+ + + + documented in this encounter Results XR CSP Flexion and Extension Only (04/27/2015 2:13 AM PDT) + + | Specimen | + + [...]
--- OUTSIDE RECORDS SUMMARY | ~2019-09-29 | XMS | Encounter Summary ---
Demographics + + + | Address | [address] | | | [place] [address] | + + + | Home Phone | | + + + | Preferred Language | Unknown | + + + | Marital Status | | + + + | Yazidism Affiliation | 1013 | + + + | Race | Unknown | + + + | Ethnic Group | Unknown | + + + Author + + + | Author | [facility] | | | and [place] | + + + | Organization | [facility] | | | [...] Team Providers + +------+ + | Care Bin Packer Name | Role | Phone | + [...] | | | | [place] | [phone] | | | | | [address] | | | | | | [phone] | | | +--------+ + + + [...]
--- OUTSIDE RECORDS SUMMARY | ~2019-09-29 | XMS | Encounter Summary ---
Demographics + + + | Address | [address] | | | [place] [address] | + + + | Home Phone | | + + + | Preferred Language | Unknown | + + + | Marital Status | | + + + | Congregation Affiliation | 1013 | + + + | Race | Unknown | + + + | Ethnic Group | Unknown | + + + Author + + + | Author | [facility] | | | and [place] | + + + | Organization | [facility] | | | [...] Team Providers + +------+ + | Care Gill Tender Name | Role | Phone | + [...] | | [address] | [place] [address] | | | | | [place] | [phone] | | | | | [address] | | | | | | [phone] | | | +--------+ + + + [...]
--- OUTSIDE RECORDS SUMMARY | ~2019-09-29 | XMS | Encounter Summary ---
Demographics + + + | Address | [address] | | | [place] [address] | + + + | Home Phone | | + + + | Preferred Language | Unknown | + + + | Marital Status | | + + + | Anabaptism Affiliation | 1013 | + + + | Race | Unknown | + + + | Ethnic Group | Unknown | + + + Author + + + | Author | [facility] | | | and [place] | + + + | Organization | [facility] | | [...] Team Providers + +------+ + | Care Media Center Director School Name | Role | Phone | + [...] | [address] | [place] [address] | | | | | [place] | [phone] | | | | | [address] | | | | | | [phone] | | | +--------+ + + + [...]
--- OUTSIDE RECORDS SUMMARY | ~2019-09-29 | XMS | Clinical Summary ---
Demographics + + + | Address | [address] | | | [place] [address] | + + + | Home Phone | | + + + | Preferred Language | Unknown | + + + | Marital Status | Single | + + + | Jehovah'S Witness Affiliation | Unknown | + + + | Race | Unknown | + + + | Ethnic Group | Unknown | + + + Author + + + | Author | [email or web address] (Historical as of | | | 06-28-19) | + + + | Organization | [facility] (Historical as of | | | 06-28-19) | + + + | Address | Unknown | + + + | Phone | Unavailable | + + + Care Team Providers + +------+ + | Care Vehicle Delivery Worker Name | Role | Phone | + +------+ + | Pia Hermosillos Ananthmerari INFORMATION SYSTEMS ANALYST | PP | Unavailable | + +------+ [...] +------+-------+ + | MEDICAID | [employer] | [id number] | | | [address] | | | [place] | | | | [place] | | | [place] | | | | [address] | | | FRETTED INSTRUMENT REPAIRER | | | | | + +--------+ [...] | | [address] | [place] [address] | + +--------+ +--------+ + +"
--- OUTSIDE RECORDS SUMMARY | ~2019-09-29 | XMS | Encounter Summary ---
Demographics + + + | Address | [address] | | | [place] [address] | + + + | Home Phone [...] + + | Author | [facility] | | | and [place] | + + + | Organization | [facility] | | | [...] Team Providers + +------+ + | Care Fashion Buying Internship Name | Role | Phone | + [...] | | | | | Cervicalgia | Kaitana Boogie, | MD [address] | | | | | Procedures | MATERIALS INTERN [address] | | | | | [place] OFFICE | | [place], [place] | | | | | CONSULTATION | [address] | [address] | | | | | NEW/ESTAB | SLIM, | Phone: | | | | | PATIENT [address] | [place] [address] | [phone] | | | | | MIN | Phone: | Fax: | | | | | | [phone] | [phone] | | | | | | Fax: | | | | | | | [phone] | | +--------+--------+ + + + + [...] | | [address] | [place] [address] | Dx); Klippel-Feil | | | | [place], [place] | [phone] | deformity; Cervical | | | | [address] | | scoliosis; Neck pain | | | | [phone] | | on left side | +--------+---------+ [...] from t he original. Chase Melvin MD [address] [place] [address], [address] [place], [place] [id number] FAX: NEUROSURGERY HISTORY AND PHYSICAL EXAMINATION CHIEF [...] has numbness/pain of arms, awake with numbness/pain, cancer registry coordinator rdination difficutly, neck injury, pain in [...] has no apparent deficits with short or residential memory. CRANIAL NERVES: II: Acuity is intact. [...] Intrinsics 5 5 Ulnar Intrinsics 5 5 Social Media Marketing Analyst Strength 5 5 Hip Flexion 5 5 [...]
--- OUTSIDE RECORDS SUMMARY | 2019-09-29 16:22 | XMS ---
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 Tanesha VISIT COUNT (12 MO.) Yonatan Govea TOTAL 3 NOTE: Visits indicate total known visits. ED/UCC VISIT TRACKING (12 MO.) 09/29/2019 16:19 [facility] [place] TYPE: Emergency COMPLAINT: - CHEST PAIN 03/08/2019 18:42 [facility] [place] TYPE: Emergency COMPLAINT: - R HAND SWELLING DIAGNOSES: - Allergy status to oth drug/meds/biol subst status - Personal history of nicotine dependence - Strain of unsp musc/fasc/tend at wrs/hnd lv, r hand, init - Other residential (current) drug therapy - Other specified soft tissue disorders - Exposure to other specified factors, initial encounter 01/08/2019 14:[address] [facility] [place] TYPE: Emergency COMPLAINT: - BACK PAIN/INJURY DIAGNOSES: - Other residential (current) drug therapy - Low back pain - meterman (current) use of opiate analgesic - Other chronic pain - Personal history of nicotine dependence INPATIENT VISIT TRACKING (12 MO.) No inpatient visits to display in this time frame [id number]
[2019-09-29] MEDS ORDERED: OXYCODONE-ACET1 EAC3 PO (16:28)
--- NOTE | 2019-09-29 19:29 | EKG ---
[facility] [address] [facility] [address] [place], [place] [address] Signed Normal sinus rhythm Normal ECG Confirmed by REJI MOSQUEDA DO ([id number]) on 09/29/2019 7:29:04 PM Electronically Signed By: REJI MOSQUEDA DO 09/29/19 1929 PATIENT NAME: TRAMAINE DAVIS NAUN Electrocardiogram DATE OF : [birth year] PHYSICIAN: REJI MOSQUEDA DO REPORT #: [id number] REPORT IS CONFIDENTIAL AND NOT TO BE RELEASED WITHOUT AUTHORIZATION
== END 2019-09-29 22:14 | disposition home or self-care (01) ==
LOC: ED 16:18
DX: R07.89 Other chest pain (principal); Z87.891 Personal history of nicotine dependence; Z79.899 Other long term (current) drug therapy
CPT/HCPCS: 71045; 80053; 83735; 84484; 85025; 93005; 93010; 96374; 96375; 99285-25; J1885

== ENCOUNTER 2021-06-16 15:34 | Emergency (ER) | payer OTHER ==
[~2021-06-16] VITALS: Ht 180.3 cm; Wt 115.7 kg
[~2021-06-16 15:34] MED LIST changes: +OXYCODONE-ACET1 EAC3 PO
--- OUTSIDE RECORDS SUMMARY | 2021-06-16 15:36 | XMS ---
PreManage Notification: TRAMAINE DAVIS Security Steam Drier Tender Events No recent Security Events currently on file CRITERIA MET - PDMP CARE PROVIDERS PROSPER Boogie Nurse Practitioner: 01/09/2019-Current PHONE: [phone] Clemente has no Care Guidelines for this patient. Tanesha VISIT COUNT (12 MO.) 1 JULIA Govea TOTAL 1 NOTE: Visits indicate total known visits. ED/UCC VISIT TRACKING (12 MO.) 06/16/2021 15:35 JULIA Ramos [place] TYPE: Emergency COMPLAINT: - LOWER BACK PAIN INPATIENT VISIT TRACKING (12 MO.) No inpatient visits to display in this time frame [id number]
== END 2021-06-16 23:03 | disposition home or self-care (01) ==
LOC: ED 15:34
DX: M54.5 Low back pain (principal); G89.29 Other chronic pain; Z87.891 Personal history of nicotine dependence; Z88.8 Allergy status to other drugs, medicaments and biological substances; Z88.1 Allergy status to other antibiotic agents; Z79.899 Other long term (current) drug therapy; Z79.891 Long term (current) use of opiate analgesic
CPT/HCPCS: 72131; 96372; 99283-25; J1170; J1885

== ENCOUNTER 2024-08-05 08:14 | Emergency (ER) | payer SELFPAY ==
[~2024-08-05] VITALS: Ht 180.3 cm; Wt 96.5 kg
[~2024-08-05 08:14] MED LIST changes: +LO-DOSE ASPIRIN81 MG PO; +NITROGLYCERIN0.4 MG SL
[2024-08-05] MEDS ORDERED: ondansetron HCL 4 MG/2 ML VIAL IV ONE (08:30)
[2024-08-05] MEDS ORDERED: SODIUM CHLORIDE 0.9% 1,000 ML IV ONE (08:30)
[2024-08-05 08:58] LABS: BASOPHILS 0.6 % (0-2); EOSINOPHILS 0.6 % (0-6); HEMOGLOBIN 16.9 g/dL (12.0-18.0); LYMPHOCYTES 22.2 % (24-44); MCH 30.8 (27-36); MCHC 33.8 g/dl (30-36); MCV 91.1 fl (81-99); MONOCYTES 12.6 % (0-12); PLATELET COUNT 246 K/uL (140-440); RBC 5.48 M/ul (4.3-5.7); RDW 12.9 (10.5-15.0)
[2024-08-05 09:13] LABS: ALBUMIN 4.2 g/dL (3.4-5.0); ALBUMIN/GLOBULIN RATIO 1.17 (1.1-2.4); ANION GAP 16.5 (7-21); BILIRUBIN, TOTAL 0.4 ng/dL (0.2-1.0); BUN/CREATININE RATIO 13.86 (6.0-28.6); CALCIUM 9.3 mg/dL (8.5-10.1); CREATININE, SERUM 1.01 mg/dL (0.70-1.30); POTASSIUM 3.5 mmol/L (3.5-5.1); PROTEIN, TOTAL 7.8 g/dL (6.4-8.2)
[2024-08-05] MEDS ORDERED: MAGNESIUM SULFATE 2 GM/50 ML BAG IV ONE (09:45)
[2024-08-05] MEDS ORDERED: ONDANSETRON ODT8 MG PO (11:01)
[2024-08-05 11:20] VITALS: BP 120/87
== END 2024-08-05 11:21 | disposition home or self-care (01) ==
LOC: ED 08:14
PROVIDERS: Emergency Medicine
DX: B34.9 Viral infection, unspecified (principal); E86.0 Dehydration; M41.9 Scoliosis, unspecified; Z87.891 Personal history of nicotine dependence; Z88.8 Allergy status to other drugs, medicaments and biological substances; Z79.82 Long term (current) use of aspirin; Z79.899 Other long term (current) drug therapy; Z79.891 Long term (current) use of opiate analgesic
CPT/HCPCS: 36415; 71045; 80053; 83735; 85025; 96361; 96365; 96375; 99284-25; J2405; J3475; J7030; U0002

== ENCOUNTER 2025-11-11 08:58 | Day surgery (SDC) | payer OTHER ==
[~2025-11-11] VITALS: Ht 177.8 cm; Wt 101.0 kg
[~2025-11-11 08:58] MED LIST changes: +AMITRIPTYLINE H25 MG PO; +IBLOOD GLUCOSE TEST STRIP 1 EA TEST VI PRN; +LACTATED RINGER'S 1,000 ML IV SCH; +LIDOCAINE HCL 1% 5 ML SDV INJ ONE; +METRONIDAZOLE500 MG PO; +ONDANSETRON ODT8 MG PO; +OXYCODONE HCL10 MG PO; +PRILOSEC OTC20 MG PO; +TETRACYCLINE H500 MG PO; +TIZANIDINE HCL4 MG PO
[2025-11-11 09:08] VITALS: BP 121/71
[2025-11-11] MEDS ORDERED: LIDOCAINE HCL 2% 5 ML SDV ONE (10:50)
[2025-11-11] MEDS ORDERED: fentaNYL citrate 100 MCG/2 ML VIAL ONE (10:55)
--- NOTE | 2025-11-11 12:07 | NUR ---
11/11/25 1207 Zo López 1203-PATIENT ARRIVED TO PACU ON 3L NC RR EVEN NONAROUSABLE ORAL AIRWAY IN PLACE. PATIENT LAYING LEFT LATERAL ABDOMEN SOFT. IVF INFUSING. SR HR 90'S
[2025-11-11 12:48] VITALS: BP 133/76
== END 2025-11-11 12:50 | disposition home or self-care (01) ==
LOC: DS 08:58
PROVIDERS: ATTEND Surgery
PROC: 0DB38ZX Excision of Lower Esophagus, Via Natural or Artificial Opening Endoscopic, Diagnostic (ICD-10-PCS; 2025-11-11)
PROC: 0DB68ZX Excision of Stomach, Via Natural or Artificial Opening Endoscopic, Diagnostic (ICD-10-PCS; 2025-11-11)
PROC: 0DBM8ZX Excision of Descending Colon, Via Natural or Artificial Opening Endoscopic, Diagnostic (ICD-10-PCS; principal; 2025-11-11 10:00)
PROC: 0DBN8ZX Excision of Sigmoid Colon, Via Natural or Artificial Opening Endoscopic, Diagnostic (ICD-10-PCS; 2025-11-11 10:00)
DX: D12.4 Benign neoplasm of descending colon (principal); K63.5 Polyp of colon; K29.50 Unspecified chronic gastritis without bleeding; K21.00 Gastro-esophageal reflux disease with esophagitis, without bleeding; K44.9 Diaphragmatic hernia without obstruction or gangrene; B96.81 Helicobacter pylori [H. pylori] as the cause of diseases classified elsewhere; Z87.891 Personal history of nicotine dependence; Z88.8 Allergy status to other drugs, medicaments and biological substances
CPT/HCPCS: 00813; J2003; J2704; J3010; J7121